=== PATIENT | female | born 1945 | race African-American/Black ===

== ENCOUNTER 2017-04-05 13:49 | Emergency (ER) | payer MEDICARE, MEDICAID ==
[~2017-04-05] VITALS: Ht 154.9 cm; Wt 67.0 kg
[~2017-04-05 13:49] MED LIST: ATOR40TA70 PO; CLOP75TA33 PO; DIAZ10TA4 PO; DOCU-138 PO; ESOM40CA PO; HYDR-519 PO; HYDR8TAB43 PO; METO25TA6 PO; NIFE30TA8 PO; [UNRECOGNIZED DRUG - CODE] MC
[2017-04-05] MEDS ORDERED: DIPHENHYDRAMINE 50MG/ML VIAL IM ONE (14:45)
[2017-04-05] MEDS ORDERED: MORPHINE SULFATE 10 MG/ML CPJ IM ONE (14:45)
[2017-04-05] MEDS ORDERED: KETOROLAC 30MG/ML VIAL IM ONE (14:45)
[2017-04-05 15:47] VITALS: BP 105/68
== END 2017-04-05 15:50 | disposition home or self-care (01) ==
LOC: ER 14:26
DX: S76.912A Strain of unspecified muscles, fascia and tendons at thigh level, left thigh, initial encounter (principal); M62.838 Other muscle spasm; I10 Essential (primary) hypertension; E78.00 Pure hypercholesterolemia, unspecified; Z85.3 Personal history of malignant neoplasm of breast; Z88.0 Allergy status to penicillin; Z88.5 Allergy status to narcotic agent; Z88.6 Allergy status to analgesic agent; Z79.01 Long term (current) use of anticoagulants; X58.XXXA Exposure to other specified factors, initial encounter; Y93.89 Activity, other specified; Y92.89 Other specified places as the place of occurrence of the external cause; Y99.8 Other external cause status
CPT/HCPCS: 72170; 96372; 99284; J1200; J1885; J2270